=== PATIENT | male | born 1965 | race Caucasian/White ===

== ENCOUNTER 2018-09-20 17:53 | Inpatient (IN) ==
[2018-09-20] MEDS ORDERED: SODIUM CHLORIDE 0.9% 1,000 ML IV STA (18:20)
[2018-09-20] MEDS ORDERED: DEXTROSE 50% 25 GM/50 ML VIAL IV STA (18:20)
[2018-09-20 18:39] LABS: ABG Base Excess -14.3 MMOL/L (-2.5-2.5); ABG HCO3 13.4 MMOL/L (20-26); ABG Oxygen Saturation 96.3 % (95-100); ABG PH 7.373 (7.35-7.45); ABG PO2 93.4 MM HG (80-95); ABG TCO2 8.6 MMOL/L (23-27); Allen Test Positive; Pt O2 Delivery Device Room Air
[2018-09-20 18:41] LABS: ABG PCO2 16.3 MM HG (35-48)
[2018-09-20] MEDS ORDERED: DEXTROSE 50% 25 GM/50 ML SYRINGE IV ONE (18:46)
[2018-09-20 18:57] LABS: Basophils % 0.3 % (0.0-0.8); Hematocrit 35.2 VOL% (42.0-52.0); Hemoglobin 10.8 GM/DL (14.0-18.0); Immature Granulocytes % 1.5 %; Lymphocytes # 0.9 10*3/uL (1.4-4.0); Lymphocytes % 6.5 % (21.2-54.2); Mean Corpuscular HGB Conc 30.7 GM/DL (32-36); Mean Corpuscular Volume 89.8 FL (87-102); Mean Platelet Volume 12.8 FL (9.6-12.0); Monocytes % 3.6 % (1.7-12.7); NRBC # 0.06 10*3/uL; Neutrophils % 88.1 % (38.7-73.9); Platelet Count 64 T/CUMM (130-400); Red Blood Count 3.92 MC/CUMM (3.8-5.5); Red Cell Distribution Width 19.6 % (9.3-17.3); White Blood Count 13.8 T/CUMM (4-12)
[2018-09-20 19:06] LABS: INR 2.3
[2018-09-20 19:11] LABS: PT Patient Result 24.6 SECS
[2018-09-20 19:19] LABS: Apearance,Urine Slightly Hazy (Clear); Bilirubin,Urine Negative (Negative); Blood, Urine Small mg/dL (Negative); Glucose,Urine (UA) 50 mg/dL (Negative); Ketones,Urine 5 mg/dL (Negative); Nitrite,Urine Negative (Negative); Protein,Urine 30 MG/DL; Urine Color Amber (Yellow); Urine Specific Gravity 1.018 (1.001-1.035)
[2018-09-20 19:26] LABS: Alanine Aminotransferase 26 U/L (16-61); Albumin 1.9 G/DL (3.4-5.0); Alkaline Phosphatase 206 U/L (45-117); Aspartate Amino Transferase 35 U/L (0-37); Blood Urea Nitrogen 20 MG/DL (7-18); Calcium 8.1 MG/DL (8.5-10.1); Glucose 113 MG/DL (74-106); Osmolality,Calculated 265.7 MOS/KG (273-304); Total Protein 6.4 G/DL (6.4-8.3)
[2018-09-20 19:27] LABS: Barbiturates Screen,Urine Negative (Negative); Benzodiazepines Screen,Urine Negative (Negative); Cannabinoid Screen,Urine Negative (Negative); Opiate Screen,Urine Negative (Negative); Phencyclidine Screen,Urine Negative (Negative)
[2018-09-20 19:34] LABS: Lymphocytes 4 % (20-55); Nucleated Red Blood Cells 2 (0-5); Segmented Neutrophils 92 % (50-85); Total Cells Counted 100
[2018-09-20 19:35] LABS: Burr Cells 2+; Platelet Estimate Decreased; Reactive Lymphocytes 1+
[2018-09-20 19:36] LABS: Anisocytosis Slight; Microcytosis Slight; Poikilocytosis 1+
[2018-09-20] MEDS ORDERED: SODIUM CHLORIDE 0.9% 1,750 ML IV ONE (19:45)
[2018-09-20 19:52] LABS: Squamous Epithelial Cell,Urine Few /HPF (0-10)
[2018-09-20] MEDS ORDERED: LORazepam 2 MG/1 ML VIAL IV STA (19:57)
[2018-09-20] MEDS ORDERED: HALOPERIDOL 5 MG/ML AMP IV STA (19:57)
[2018-09-20] MEDS ORDERED: SODIUM CHLORIDE 0.9% 1,000 ML IV SCH (20:00)
[2018-09-20 20:05] LABS: Sedimentation Rate-Westergren 53 MM/HR (0-20)
[2018-09-20 20:12] LABS: HIV Antigen/Antibody Result Nonreactive (Nonreactive); Prolactin 4.6 NG/ML
[2018-09-20] MEDS ORDERED: ALBUTEROL 2.5 MG/3 ML NEB RESP TX PRN (20:39)
[2018-09-20] MEDS ORDERED: GLUCAGON 1 MG VIAL IM PRN (22:34)
[2018-09-20] MEDS: DEXTROSE 50% 25 GM/50 ML SYRINGE IV PRN (22:59)
[2018-09-20] MEDS ORDERED: HALOPERIDOL 5 MG/ML AMP IV PRN (23:01)
[2018-09-20] MEDS: POTASSIUM CHLORIDE RIDER 10 MEQ in PREMIX 1 EACH IV SCH (23:12)
[2018-09-20] MEDS ORDERED: diphenhydrAMINE 50 MG/1 ML VIAL IV ONE (23:39)
[2018-09-20] MEDS: PIPERACILLIN/TAZOBACTAM 3,375 MG in SODIUM CHLORIDE 0.9% 100 ML IV SCH (23:48)
[2018-09-21] MEDS ORDERED: diphenhydrAMINE 50 MG/1 ML VIAL IV PRN (00:31)
[2018-09-21] MEDS: DEXTROSE 5% NACL 0.9% 1,000 ML IV SCH ×2 (00:38→10:03)
[2018-09-21] MEDS: VANCOMYCIN INJ 1,000 MG in SODIUM CHLORIDE 0.9% 250 ML IV SCH ×2 (00:39→13:30)
[2018-09-21] MEDS: POTASSIUM CHLORIDE RIDER 10 MEQ in PREMIX 1 EACH IV SCH ×4 (00:54→01:52)
[2018-09-21 01:22] LABS: Albumin 1.9 G/DL (3.4-5.0); Bilirubin,Total 4.3 MG/DL (0.2-1.0); Calcium 8.1 MG/DL (8.5-10.1); Osmolality,Calculated 265.5 MOS/KG (273-304); Total Protein 6.6 G/DL (6.4-8.3)
[2018-09-21] MEDS: DEXTROSE 50% 25 GM/50 ML SYRINGE IV PRN (01:58)
[2018-09-21] MEDS ORDERED: SODIUM BICARBONATE 50 MEQ/50 ML VIAL IV ONE ×3 (02:40→05:00)
[2018-09-21] MEDS ORDERED: ETOMIDATE 20 MG/10 ML VIAL IV ONE ×2 (02:46→02:49)
[2018-09-21] MEDS ORDERED: PROPOFOL 1,000 MG/100 ML BOTTLE IV ONE (02:47)
[2018-09-21 03:51] LABS: Pt O2 Delivery Device Ventilator
[2018-09-21 04:45] LABS: ABG Base Excess -21.7 MMOL/L (-2.5-2.5); ABG HCO3 8.9 MMOL/L (20-26); ABG Oxygen Saturation 97.9 % (95-100); ABG PCO2 29.6 MM HG (35-48); ABG TCO2 7.8 MMOL/L (23-27)
[2018-09-21 04:53] LABS: ABG PH 7.045 (7.35-7.45)
[2018-09-21] MEDS: PROPOFOL 1,000 MG/100 ML BOTTLE IV PRN (05:21)
[2018-09-21 06:52] VITALS: BP 86/69
[2018-09-21 07:25] LABS: Basophils # 0.1 10*3/uL (0.0-0.2); Basophils % 0.3 % (0.0-0.8); Eosinophils % 0.1 % (0.00-10.9); Hemoglobin 9.1 GM/DL (14.0-18.0); Immature Granulocytes % 1.4 %; Immature Granulocytes Absolute 0.24 #; Lymphocytes # 1.2 10*3/uL (1.4-4.0); Lymphocytes % 6.8 % (21.2-54.2); Mean Corpuscular HGB Conc 29.4 GM/DL (32-36); Mean Corpuscular Volume 94.2 FL (87-102); Mean Platelet Volume 13.5 FL (9.6-12.0); Monocytes % 4.1 % (1.7-12.7); NRBC # 0.08 10*3/uL; Neutrophils % 87.3 % (38.7-73.9); Red Blood Count 3.29 MC/CUMM (3.8-5.5); Red Cell Distribution Width 20.6 % (9.3-17.3); White Blood Count 17.5 T/CUMM (4-12)
[2018-09-21 07:28] LABS: Platelet Count 48 T/CUMM (130-400)
[2018-09-21 07:41] LABS: Albumin 1.7 G/DL (3.4-5.0); Bilirubin,Total 4.6 MG/DL (0.2-1.0); Calcium 7.2 MG/DL (8.5-10.1); Osmolality,Calculated 281.5 MOS/KG (273-304); Total Protein 5.5 G/DL (6.4-8.3)
[2018-09-21 07:46] LABS: Anisocytosis 2+; Band Neutrophils 19 % (0-10); Lymphocytes 8 % (20-55); Macrocytosis 1+; Nucleated Red Blood Cells 1 (0-5); Platelet Estimate Decreased; Poikilocytosis 2+; Segmented Neutrophils 70 % (50-85); Total Cells Counted 100
[2018-09-21 07:47] LABS: Giant Platelets Few
[2018-09-21] MEDS: PIPERACILLIN/TAZOBACTAM 3,375 MG in SODIUM CHLORIDE 0.9% 100 ML IV SCH ×2 (08:13→16:20)
[2018-09-21] MEDS ORDERED: SODIUM CHLORIDE 0.9% 1,000 ML IV ONE (08:30)
[2018-09-21] MEDS ORDERED: ENOXAPARIN 40 MG/0.4 ML SYRINGE SUBCUT SCH (09:00)
[2018-09-21] MEDS: FAMOTIDINE 20 MG/2 ML VIAL IV SCH (09:10)
[2018-09-21] MEDS: SODIUM BICARB INJ 100 MEQ in DEXTROSE 5% 1,000 ML IV SCH ×2 (09:59→18:33)
[2018-09-21] MEDS: POTASSIUM CHLORIDE 20 MEQ/15 ML UDCUP PER TUBE PRN ×3 (10:07→16:07)
[2018-09-21] MEDS: HYDROCORTISONE 100 MG VIAL IV SCH ×2 (10:27→16:34)
[2018-09-21] MEDS ORDERED: GLUCAGON 1 MG VIAL IM PRN (11:16)
[2018-09-21] MEDS: INSULIN LISPRO 100 UNIT/ML SUBCUT SCH ×3 (12:08→21:09)
[2018-09-21 12:18] LABS: Calcium 7.4 MG/DL (8.5-10.1); Osmolality,Calculated 287.3 MOS/KG (273-304)
[2018-09-21 13:40] LABS: Hepatitis B Core IgM Quant < 0.05 Index; Hepatitis B Surface Ag Quant < 0.10 Index; Hepatitis B Surface Ag Result Negative (Negative); Hepatitis C Virus Ab Quant > 11.00 Index; Hepatitis C Virus Ab Result Positive (Negative)
[2018-09-21 14:23] LABS: ABG Base Excess -2.3 MMOL/L (-2.5-2.5); ABG HCO3 22.5 MMOL/L (20-26); ABG PH 7.501 (7.35-7.45); ABG TCO2 17.4 MMOL/L (23-27); Allen Test Positive; Pt O2 Delivery Device Ventilator
[2018-09-21] MEDS ORDERED: DEXTROSE 5% 1,000 ML IV SCH (17:21)
[2018-09-21] MEDS: DEXTROSE 5% NACL 0.45% 1,000 ML IV SCH (18:28)
[2018-09-22] MEDS: PROPOFOL 1,000 MG/100 ML BOTTLE IV PRN (00:02)
[2018-09-22] MEDS: DEXTROSE 5% NACL 0.45% 1,000 ML IV SCH (00:17)
[2018-09-22] MEDS: INSULIN LISPRO 100 UNIT/ML SUBCUT SCH ×5 (01:05→18:16)
[2018-09-22] MEDS: HYDROCORTISONE 100 MG VIAL IV SCH ×2 (01:05→08:53)
[2018-09-22] MEDS: PIPERACILLIN/TAZOBACTAM 3,375 MG in SODIUM CHLORIDE 0.9% 100 ML IV SCH ×3 (01:05→17:48)
[2018-09-22] MEDS: NOREPINEPHRINE 8 MG in SODIUM CHLORIDE 0.9% 242 ML IV PRN ×2 (02:38→14:58)
[2018-09-22 02:41] LABS: Basophils # 0.1 10*3/uL (0.0-0.2); Basophils % 0.4 % (0.0-0.8); Hematocrit 34.3 VOL% (42.0-52.0); Hemoglobin 10.2 GM/DL (14.0-18.0); Immature Granulocytes % 1.9 %; Immature Granulocytes Absolute 0.49 #; Lymphocytes # 2.2 10*3/uL (1.4-4.0); Lymphocytes % 8.6 % (21.2-54.2); Mean Corpuscular HGB Conc 29.7 GM/DL (32-36); Mean Corpuscular Volume 91.5 FL (87-102); Monocytes % 5.9 % (1.7-12.7); NRBC # 0.07 10*3/uL; Neutrophils % 83.2 % (38.7-73.9); Platelet Count 44 T/CUMM (130-400); Red Blood Count 3.75 MC/CUMM (3.8-5.5); Red Cell Distribution Width 19.9 % (9.3-17.3); White Blood Count 25.7 T/CUMM (4-12)
[2018-09-22 03:07] LABS: Albumin 1.6 G/DL (3.4-5.0); Bilirubin,Total 5.1 MG/DL (0.2-1.0); Calcium 6.9 MG/DL (8.5-10.1); Total Protein 5.3 G/DL (6.4-8.3)
[2018-09-22 03:53] LABS: ABG Base Excess -1.8 MMOL/L (-2.5-2.5); ABG Oxygen Saturation 99.5 % (95-100); ABG PCO2 25.8 MM HG (35-48); ABG PH 7.508 (7.35-7.45); ABG PO2 409.4 MM HG (80-95); ABG TCO2 20.8 MMOL/L (23-27); Allen Test Positive; Pt O2 Delivery Device Ventilator
[2018-09-22] MEDS: SODIUM CHLORIDE 0.45% 1,000 ML IV SCH ×3 (05:15→18:31)
[2018-09-22 06:05] LABS: Band Neutrophils 6 % (0-10); Lymphocytes 9 % (20-55); Metamyelocytes 2 %; Myelocytes 1 %; Platelet Estimate Decreased; Segmented Neutrophils 77 % (50-85); Total Cells Counted 100
[2018-09-22 06:07] LABS: Hypochromasia 2+
[2018-09-22] MEDS: POTASSIUM CHLORIDE 20 MEQ/15 ML UDCUP PER TUBE PRN (08:48)
[2018-09-22] MEDS: FAMOTIDINE 20 MG/2 ML VIAL IV SCH (08:49)
[2018-09-22] MEDS ORDERED: VANCOMYCIN INJ 1,000 MG in SODIUM CHLORIDE 0.9% 250 ML IV SCH (13:00)
[2018-09-22] MEDS: DEXTROSE 50% 25 GM/50 ML SYRINGE IV PRN ×2 (16:53→17:52)
[2018-09-22] MEDS ORDERED: HYDROCORTISONE 100 MG VIAL IV SCH (17:00)
== END 2018-09-22 18:50 | disposition expired | DRG 871 ==
LOC: EDUNIT# → EDBD → N.ED 17:53 → N.EDINP 20:39 → N.CC 21:13
PROVIDERS: ADMIT Internal Medicine; ATTEND Internal Medicine